=== PATIENT | male | born 1985 ===

== ENCOUNTER 2020-10-07 16:05 | Emergency (ER) | payer OTHER ==
[~2020-10-07] VITALS: Ht 167.6 cm; Wt 83.9 kg
[2020-10-07] MEDS ORDERED: TRIDERM28.4 GM TP (16:23)
[2020-10-07] MEDS ORDERED: Prednisone20 MG PO (16:23)
== END 2020-10-07 16:21 | disposition home or self-care (01) ==
LOC: ER 16:05
DX: L23.7 Allergic contact dermatitis due to plants, except food (principal)
CPT/HCPCS: 99282